=== PATIENT | female | born 1965 ===

== ENCOUNTER 2017-03-04 15:33 | Emergency (ER) | payer MEDICAID ==
[2017-03-04 15:34] VITALS: BMI 36.1
[2017-03-04 15:37] VITALS: TEMP 97.9; O2SAT 98
--- NOTE | 2017-03-04 17:32 | C.PDOC ---
History Of Present Illness 51 yr old female with history of chronic joint pain and arthritis, presents to the ER with complaints of pain to left hand, lower back and bilateral knees for the past 3 days. patient states she has been seen by a neurologist and was given Melicoxam with no relief. Patient denies injury, fever, nausea, vomiting, abdominal pain, dysuria, incontinence, weakness or numbness. Time Seen by Provider: 03/04/17 16:03 Chief Complaint (Nursing): Back Pain History Per: Patient History/Exam Limitations: no limitations Onset/Duration Of Symptoms: Days (3) Current Symptoms Are (Timing): Still Present Past Medical History Reviewed: Historical Data, Nursing Documentation, Vital Signs Vital Signs: Last Vital Signs Temp 97.9 F 03/04/17 16:01 Pulse 90 03/04/17 17:38 Resp 18 03/04/17 17:38 BP 148/83 03/04/17 17:38 Pulse Ox 98 03/04/17 17:56 - Medical History PMH: Asthma, Back Problems, Colonic Polyps (PRE CANCEROUS), COPD, Depression ( POST ), HTN, Hypercholesterolemia, Osteoporosis Surgical History: Endoscopy, Tonsillectomy - [facility] Procedures CORONAR ARTERIOGR-2 CATH (11/16/13) INSERTION OF ONE VASCULAR STENT (11/16/13) INSRT OF DRUG-ELUTING CORON ARTERY STENTS(S) (11/16/13) LEFT HEART CARDIAC CATH (11/16/13) LT HEART ANGIOCARDIOGRAM (11/16/13) PERCUTANEOUS TRANSLUMINAL CORONARY ANGIOPLASTY [PTCA] (11/16/13) PROCEDURE ON SINGLE VESSEL (11/16/13) Family History: States: No Known Family Hx - Social History Hx Alcohol Use: No Hx Substance Use: No - Immunization History Hx Tetanus Toxoid Vaccination: No Hx Influenza Vaccination: Yes (2016) Hx Pneumococcal Vaccination: No Review Of Systems Except As Marked, All Systems Reviewed And Found Negative. Constitutional: Negative for: Fever Gastrointestinal: Negative for: Nausea, Vomiting, Abdominal Pain Genitourinary: Negative for: Dysuria, Incontinence Musculoskeletal: Positive for: Back Pain (Lower back ), Hand Pain (Left hand ), Other ((+) Bilateral knee pain ) Neurological: Negative for: Weakness, Numbness Physical Exam - Physical Exam Appears: Non-toxic, No Acute Distress Skin: Warm, Dry, No Rash Head: Atraumatic, Normacephalic, No Swelling, No Abrasion Oral Mucosa: Moist Neck: Normal, Normal ROM, Supple Chest: Symmetrical, No Tenderness Cardiovascular: Rhythm Regular, No Murmur Respiratory: Normal Breath Sounds, No Rales, No Rhonchi, No Stridor, No Wheezing Extremity: Normal ROM, Swelling (Left Hand - Swellin to the MCP joints. No ecchymosis. ), Other (Normal knees. ) Neurological/Psych: Oriented x3, Normal Speech, Normal Motor ED Course And Treatment O2 Sat by Pulse Oximetry: 98 (RA ) Pulse Ox Interpretation: Normal Medical Decision Making Medical Decision Making: PLAN: * Flexeril PO * Toradol IM On re-exam, the patient reports improvement of symptoms. Ambulatory in the ED with steady gait. Lungs are CTA, heart is RRR, Abdomen is soft, non-tender and patient is tolerating PO well. Follow up with the medical doctor within 1-2 days. Return if worsened. Disposition - Disposition Referrals: Otto Lay MD [Staff Provider] - Disposition: HOME/ ROUTINE Disposition Time: 17:30 Condition: GOOD Additional Instructions: Follow up with the medical doctor within 1-2 days. Return if worsened. 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 - Scribe Statement The provider has reviewed the documentation as recorded by the Scribe Geeta Patel All medical record entries made by the Georgeibgalileo were at my direction and personally dictated by me. I have reviewed the chart and agree that the record accurately reflects my personal performance of the history, physical exam, medical decision making, and the department course for this patient. I have also personally directed, reviewed, and agree with the discharge instructions and disposition.
[2017-03-04 17:39] VITALS: BP 148/83; PULSE 90; RESP 18
== END 2017-03-04 17:39 | disposition home or self-care (01) ==
LOC: C.ER 15:33
DX: M54.5 Low back pain (principal); M25.562 Pain in left knee; M25.561 Pain in right knee; M25.542 Pain in joints of left hand
CPT/HCPCS: 96372; 99283; J1885